=== PATIENT | female | born 1970 | race Caucasian/White ===

== ENCOUNTER 2023-01-26 07:33 | Day surgery (SDC) | payer BC ==
[2023-01-26] MEDS ORDERED: Versed 2 MG/2 ML Injection IV ONE (07:52)
[2023-01-26] MEDS ORDERED: Reglan 10 MG/2 ML IV ONE (07:53)
[2023-01-26] MEDS ORDERED: Transderm Scop 1.5MG Patch TOP ONE (07:56)
[2023-01-26] MEDS ORDERED: Lactated Ringers 1,000 ML IV SCH (08:00)
[2023-01-26] MEDS ORDERED: CEFAZOLIN 2 GM-D5W BAG** 2 GM/50 ML ML IV SCH (08:00)
[2023-01-26] MEDS ORDERED: Transderm Scop 1.5MG Patch ONE (08:16)
[2023-01-26] MEDS ORDERED: CEFAZOLIN 2 GM-D5W BAG** 2 GM/50 ML ML IV ONE (08:16)
[2023-01-26] MEDS ORDERED: Versed 2 MG/2 ML Injection ONE ×2 (08:16→09:08)
[2023-01-26] MEDS ORDERED: Lactated Ringers 1,000 ML IV ONE (08:17)
[2023-01-26] MEDS ORDERED: Reglan 10 MG/2 ML ONE (08:17)
[2023-01-26 08:42] LABS: Absolute Neutrophil Ct (ANC) 6.64 x10^3/uL (1.4-6.9); BASOPHIL % 0.9 % (0.0-0.4); Eosinophil % 3.5 % (0.00-5.0); Hematocrit 39.8 % (35-47); Hemoglobin 12.5 g/dL (12.0-16.0); IMMATURE GRAN # 0.05 x10^3u/L (0.00-0.03); IMMATURE GRAN % 0.4 % (0.00-0.4); Lymphocyte (Absolute #) 3.78 x10^3/uL (1.0-4.6); Lymphocytes % 32.7 % (24.0-44.0); Mean Cell Volume 86.3 fL (78-100); Mean Corpuscular Hemoglobin 27.1 pg (26-32); Mean Corpuscular Hgb Concent. 31.4 g/dL (32-36); Mean Platelet Volume 9.2 fL (7.5-11.0); Monocyte (Absolute #) 0.59 x10^3/uL (0.0-1.3); Monocytes % 5.1 % (0.0-12.0); Neutrophil % 57.4 % (36.0-66.0); Platelet Count 412 x10^3/uL (150-450); Red Blood Count 4.61 x10^6/uL (4.1-5.4); Red Cell Distribution Width 14.5 % (11.5-14.0); White Blood Count 11.6 x10^3/uL (4.0-10.5)
[2023-01-26 08:52] LABS: HCG SERUM TEST NEGATIVE (NEGATIVE)
[2023-01-26 08:58] LABS: ANION GAP 12.2 MEQ/L (5-15); BLOOD UREA NITROGEN 11 mg/dL (7-17); CHLORIDE 102 mmol/L (98-107); Calcium 9.6 mg/dL (8.4-10.2); Carbon Dioxide 28 mmol/L (22-30); Creatinine 1 0.58 mg/dL (0.52-1.04); EST GLOMERULAR FILTRATION RATE > 60.0 ML/MIN; Glucose 101 mg/dL (74-106); Potassium 4.1 mmol/L (3.5-5.1); SODIUM 138 mmol/L (137-145)
[2023-01-26] MEDS ORDERED: DIPRIVAN 200 MG/20 ML IV ONE (09:08)
[2023-01-26] MEDS ORDERED: SUBLIMAZE 100 MCG/2 ML ONE (09:08)
[2023-01-26 10:22] VITALS: RESP 16; TEMP 97.6; O2SAT 96
[2023-01-26 10:37] VITALS: BP 116/68; PULSE 69
--- NOTE | 2023-01-27 09:47 | OP ---
SURGERY DATE: 01/26/2023 SURGERY TIME: 912 PREOPERATIVE DIAGNOSIS: 1. ABNORMAL UTERINE BLEEDING. POSTOPERATIVE DIAGNOSIS: 1. ABNORMAL UTERINE BLEEDING. PROCEDURE: 1. Hysteroscopy D&C with NovaSure ablation. SURGEON: Dr. Molina Hopson. PARTS SALES ADVISOR: malia Chaudhari. ANESTHESIA: General. ESTIMATED BLOOD LOSS: Minimal. COMPLICATIONS: None. FINDINGS: The risks, benefits, indications, and alternatives of the procedure were reviewed with the patient prior to the procedure. Patient understood the risk of infection, bleeding, bowel injury, bladder injury, ureteral injury, uterine perforation, pelvic infection, thromboembolic disorder associated with this procedure and desires to have the surgery as a possible means to alleviate her current medical condition. DESCRIPTION OF PROCEDURE: At this point, the patient was taken to the OR, given general sedation, placed in the dorsal lithotomy position, prepped and draped in the usual sterile fashion. A weighted speculum was then placed in the patient's vagina and the anterior lip of the cervix was grasped with the single toothed tenaculum. At this point, dilators were used and advanced within the cervical canal as a means to dilate the cervix and a 5 mm hysteroscope was then placed into the endocervical region where visualization appeared to be within normal limits within the uterine cavity. From this point, the hysteroscope was removed and a curette was then placed into the fundus of the uterus where curettage was performed in all quadrants of the uterus retrieving a mild to moderate amount of tissue. From this point, after curettage, the NovaSure was then placed into the endocervical region toward the fundal region retracting approximately 1 cm. Then the instrument was engaged and the machine was turned on for an ablated time of 38 seconds. After complete ablation, the instrument measured at 6.5 cm in length with 4.0 cm in width. The ablation instrument was then disengaged and removed from the uterine cavity without complication. From this point, all instruments were removed from the patient's vaginal region. The patient then taken out of the dorsal lithotomy position, was taken out of anesthesia, and was then taken to the recovery room in stable condition. All instruments and laps were accounted for X 2.
== END 2023-01-26 10:57 | disposition home or self-care (01) ==
LOC: SDC 07:33
PROVIDERS: ATTEND Obstetrics & Gynecology
DX: N93.9 Abnormal uterine and vaginal bleeding, unspecified (principal)
CPT/HCPCS: 36415; 80048; 84703; 85025; J0690; J2250; J2704; J3010; A9270-GY